=== PATIENT | male | born 1945 | race Two or more races ===

== ENCOUNTER 2022-01-28 12:24 | Emergency (ER) | payer OTHER, MEDICAID ==
[~2022-01-28] VITALS: Ht 170.2 cm; Wt 90.0 kg
[2022-01-28] MEDS ORDERED: CEPH-510 PO (15:49)
[2022-01-28 16:26] VITALS: BP 145/95
== END 2022-01-28 16:39 | disposition home or self-care (01) ==
LOC: EDUNIT# 12:24 → ER 12:24 → EDBD 12:24 → ER 16:39
DX: S01.112A Laceration without foreign body of left eyelid and periocular area, initial encounter (principal); I10 Essential (primary) hypertension; R51.9 Headache, unspecified; W18.09XA Striking against other object with subsequent fall, initial encounter; Y93.01 Activity, walking, marching and hiking; Y92.89 Other specified places as the place of occurrence of the external cause; Y99.8 Other external cause status
CPT/HCPCS: 12013; 70450; 93005